=== PATIENT | female | born 1985 | race Caucasian/White ===

== ENCOUNTER → 2017-02-26 | Outpatient (CLI) | payer OTHER | END | disposition home or self-care (01) | LOC: C.PAPS 09:29 | PROVIDERS: ATTEND Obstetrics & Gynecology | DX: Z12.4 Encounter for screening for malignant neoplasm of cervix (principal) ==

== ENCOUNTER 2024-02-17 07:46 | Inpatient (IN) ==
[2024-02-17] MEDS ORDERED: LIDOCAINE 1% LOCAL 20 ML VIAL INFIL PRN (08:58)
[2024-02-17] MEDS ORDERED: OXYTOCIN 30 UNITS/NSS 30 UNITS/500 ML BAG IV PRN (08:58)
--- NOTE | 2024-02-17 10:04 | History & Physical Report ---
Date of Service February 17, 2024 Assessment & Plan (1) Encounter for supervision of elderly primigravida: Plan: Admit to L&D. EFM/toco. Labs. Hourly glucose when in active labor, and on admission. Penicillin for GBS prophylaxis. OK for epidural when she desires. Admission and Anticipated Discharge Date Admission Date: February 17, 2024 History of Present Illness Chief Complaint: IOL Primary Care Provider: NO PCP 38yo @ 42 08/07, here for postdates IOL. and Delivery Plans AMA *Weekly NST's @ 36 weeks Factor V Leiden HETEROZYGOUS, no personal h/o clot but patient's mom had DVT = no antepartum tx indicated, but prophy dose anticoag 6wk ppx per ACOG ASA 81mg daily @ 12wk (nullip / AMA) GDM w/28wk glucola *Begin monthly Growth US's GBS Positive *Treat in Labor IOL post dates scheduled for 02/[address] Graf Allergies Allergy/AdvReac Type Severity Reaction Status Date / Time No Known Allergies Allergy Verified 02/16/24 13:05 Home Medications Medication Instructions Recorded Confirmed Type multivitamin 1 tab PO DAILY 06/29/23 02/16/24 History vit no.95-ferrous 1 tab PO DAILY 06/29/23 02/16/24 History fumarate 28 mg-folic acid 800 mcg tablet () folic acid PO 06/30/23 02/16/24 History acetone (urine) test (Ketone Urine #50 ea 12/08/23 02/16/24 Rx Test strips) blood sugar diagnostic (OneTouch #150 ea 12/08/23 02/16/24 Rx Verio test strips) blood-glucose meter (OneTouch #1 ea 12/08/23 02/16/24 Rx Verio Reflect Meter) lancets 33 gauge (OneTouch Delica #150 ea 12/08/23 02/16/24 Rx Plus Lancet) breast pump #1 ea 01/12/24 02/16/24 Rx Patient History Medical History (Updated 01/26/24 @ 08:10 by Torrie Cherry) Chicken pox Factor V deficiency Ulcer Surgical History S/P wisdom tooth extraction Hx of knee surgery Hx of foot surgery Family History Mother Deep vein thrombosis Other Hypertension Thyroid disease Denies family history of Ovarian cancer Breast cancer Colorectal cancer Uterine cancer Social History (Updated 06/30/23 @ 08:59 by Sarahi Garner, ANITHA) Smoking Status: Never smoker Second Hand Exposure: No; Do You Dip or Chew Tobacco: No; Tobacco Cessation Education Requested by Patient: No Hx Alcohol Use: No Hx Substance Use: No Preferred Language: Palauan Communication Ability: Effective Fly Winder Required: No Beliefs That Will Affect Care: None marital status: marital status details: Nahun Carlton (34) [phone] Current Living Situation: Spouse Current Living Situation Comment: Lives with spouse, 2 dogs current occupational status: employed current occupation: [employer] Other Information That Helps Us Care for You: No Feels Safe at Home: Yes Safety Concerns: Feels Safe At This Time Review of Systems All systems reviewed & are unremarkable except as noted in HPI & below Physical Exam Physical Exam: FHT Cat 1 [place] rare SVE /-1 Constitutional: WD/WN, vitals as above Respiratory: normal respiratory effort, lungs clear to auscultation no respiratory distress Cardiovascular: Rate/Rhythm: regular rate and regular rhythm Gastrointestinal (Abdomen): Inspection/Auscultation: abdomen normal to inspection Percussion/Palpation: abdomen soft; abdomen nontender Gravid. No s/s chorio or abruption. Skin: no rashes, warm and dry Psychiatric: A+Ox3, euthymic affect Results & Data Vital Signs (Past 12 Hours) Vital Signs Temp Pulse Resp BP 02/17/24 09:56 94 H 130/80 02/17/24 08:13 36.8 C 98 H 18 120/75 02/17/24 08:04 98 H 120/75 Coding Level of Care Code None Diagnoses Encounter for supervision of elderly primigravida O09.519
[2024-02-17] MEDS: SODIUM CHLORIDE 0.9% 1,000 ML IV SCH (10:06)
[2024-02-17] MEDS: PENICILLIN GK 6 MU in SODIUM CHLORIDE 0.9% 250 ML IV STA (10:07)
[2024-02-17] MEDS: OXYTOCIN 30 UNITS/NSS 30 UNITS/500 ML BAG IV PRN (10:12)
[2024-02-17 10:13] LABS: Hematocrit (blood only) 38.4 % (37.0-47.0); Hemoglobin 13.7 g/dl (12.0-16.0); Mean Corpuscular Hemoglobin 33.9 pg (25.0-34.0); Mean Corpuscular Hgb Conc 35.7 g/dL (32.0-36.0); Mean Platelet Volume 10.7 fL (9.4-12.4); Platelet Count 184 K/uL (130-400); RDW Coefficient of Variation 13.5 % (11.5-14.5); RDW Standard Deviation 46.6 fL (36.4-46.3); Red Blood Count 4.04 M/uL (4.20-5.40); White Blood Count 11.02 K/ul (4.8-10.8)
[2024-02-17] MEDS: PENICILLIN GK 3 MU in DEXTROSE 5% 100 ML IV PRN (14:02)
--- NOTE | 2024-02-17 15:17 | Anesthesiology Consultation ---
Date of Service February 17, 2024 Assessment & Plan (1) Encounter for pre-operative examination: Chart Review Chart Review: Acceptable Risk for Labor Epidural History Height/Weight Height: 5 ft 6 in Weight: 97.522 kg Allergies Allergy/AdvReac Type Severity Reaction Status Date / Time No Known Allergies Allergy Verified 02/17/24 10:39 Medications Home Medications Medication Instructions Recorded Confirmed Last Taken vit no.95-ferrous 1 tab PO DAILY 06/29/23 02/17/24 06/29/23 fumarate 28 mg-folic acid 800 mcg tablet () acetone (urine) test (Ketone Urine #50 ea 12/08/23 02/16/24 Unknown Test strips) blood sugar diagnostic (OneTouch #150 ea 12/08/23 02/16/24 Unknown Verio test strips) blood-glucose meter (OneTouch #1 ea 12/08/23 02/16/24 Unknown Verio Reflect Meter) lancets 33 gauge (OneTouch Delica #150 ea 12/08/23 02/16/24 Unknown Plus Lancet) breast pump #1 ea 01/12/24 02/16/24 Unknown Active Medications Generic Name Dose Route Start Last Admin Trade Name Freq PRN Reason Stop Dose Admin Oxytocin 30 units in 500 mls @ 17 mls/hr 02/17/24 08:58 02/17/24 14:31 Pitocin 30 Units/Nss IV 02/19/24 08:57 1.02 units/hr .Q24H PRN 17 mls/hr Labor Induction/Augmentation Titration Protocol 1.02 UNITS/HR Penicillin G Potassium 3 mu/ 106 mls @ 100 mls/hr 02/17/24 11:58 02/17/24 14:02 Dextrose IV 02/27/24 11:57 100 mls/hr Q4H PRN Administration GBS(+) Until Delivery Sodium Chloride 1,000 mls @ 50 mls/hr 02/17/24 10:15 02/17/24 10:06 Nss IV 02/18/24 10:14 50 mls/hr .Q20H LEANN Administration Past Medical History Medical History (Updated 02/17/24 @ 15:16 by Gallo Alvarez MD) GDM (gestational diabetes mellitus) Chicken pox Factor V deficiency Ulcer Past Family History Family History Mother Deep vein thrombosis Other Hypertension Thyroid disease Denies family history of Ovarian cancer Breast cancer Colorectal cancer Uterine cancer Past Surgical History Surgical History S/P wisdom tooth extraction Hx of knee surgery Hx of foot surgery Social History Smoking Status: Never smoker Do You Dip or Chew Tobacco: No Hx Alcohol Use: No Hx Substance Use: No Physical Exam Vital Signs Last Vital Signs Temp 36.9 C 02/17/24 11:46 Pulse 93 H 02/17/24 14:11 Resp 18 02/17/24 11:46 BP 120/74 02/17/24 14:11 Testing Laboratory Results 02/17/24 09:42 02/17/24 13:54 POC Glucose 111 H
[2024-02-17] MEDS: fentaNYL citrate PF 100 MCG/2 ML VIAL ONE (16:00)
[2024-02-17] MEDS: fentANYL 2 MCG/ML BUPIVacaine 0.125%-NSS 100ML BAG ONE (16:20)
[2024-02-17] MEDS: ePHEDrine sulfate 50 MG/ML AMP ONE (16:20)
[2024-02-17] MEDS: BUPIVACAINE 0.25% PF 30 ML VIAL ONE (16:39)
[2024-02-17] MEDS: LIDOCAINE 2%/EPINEPHRINE 1:200,000 20 ML PF ONE (16:40)
[2024-02-17] MEDS: SODIUM CHLORIDE 0.9% PF INJ 10 ML VIAL ONE (16:41)
--- NOTE | 2024-02-17 21:16 | Anesthesia Procedure Note ---
Date of Service February 17, 2024 Anesthesia Epidural Re-Dose Vital Signs Temp Pulse Resp BP Pulse Ox 37.0 C 125 H 18 110/56 L 99 02/17/24 19:01 02/17/24 21:13 02/17/24 20:00 02/17/24 21:13 02/17/24 21:08 Notes Pain Intensity: 6 Dilatation (cm): 10.0 Effacement (%): 100 Called by nursing to evaluate epidural as the patient is having increased pain. The epidural was re-dosed with the following medications (all medications via epidural route) after negative aspiration of the epidural catheter for CSF/HEME 1.2% lidocaine and 0.2% ropivacaine 6ml plus another 3ml After Epidural Re-Dose Mental Status: alert / awake / arousable Pain: improving with treatment Airway Patency, RR, SpO2: stable & adequate BP & HR: stable & adequate
[2024-02-18] MEDS: fentANYL 2 MCG/ML BUPIVacaine 0.125%-NSS 100ML BAG ONE (00:07)
[2024-02-18] MEDS ORDERED: fentaNYL citrate PF 100 MCG/2 ML VIAL EPI PRN (00:51)
[2024-02-18] MEDS ORDERED: SODIUM CHLORIDE 0.9% PF INJ 10 ML VIAL EPI STA (00:51)
[2024-02-18] MEDS ORDERED: ePHEDrine sulfate 50 MG/ML AMP IV PRN (00:51)
[2024-02-18] MEDS ORDERED: BUPIVACAINE 0.25% PF 30 ML VIAL EPI STA (00:51)
[2024-02-18] MEDS ORDERED: ROPIVACAINE 0.5% PF 5 MG/ML 20 ML VIAL EPI PRN (00:51)
[2024-02-18] MEDS ORDERED: fentaNYL citrate PF 100 MCG/2 ML VIAL EPI STA (00:51)
[2024-02-18] MEDS ORDERED: NALOXONE HCL 0.4 MG/1 ML VIAL/CARP IV PRN (00:51)
[2024-02-18] MEDS ORDERED: SODIUM CHLORIDE 0.9% PF INJ 10 ML VIAL EPI PRN (00:51)
[2024-02-18] MEDS ORDERED: ONDANSETRON INJ 2 MG/ML 2 ML VIAL IV PRN (00:51)
[2024-02-18] MEDS ORDERED: LIDOCAINE 2% MPF LOCAL 5 ML VIAL EPI PRN (00:51)
[2024-02-18] MEDS ORDERED: NALOXONE HCL 1 MG in SODIUM CHLORIDE 0.9% 1,000 ML IV PRN (00:51)
[2024-02-18] MEDS ORDERED: LIDOCAINE 2%/EPINEPHRINE 1:200,000 20 ML PF EPI STA (00:51)
[2024-02-18] MEDS ORDERED: fentANYL 2 MCG/ML BUPIVacaine 0.125%-NSS 100ML BAG EPI PRN (00:51)
[2024-02-18] MEDS ORDERED: BUPIVACAINE 0.25% PF 30 ML VIAL EPI PRN (00:51)
--- NOTE | 2024-02-18 01:04 | Labor Progress Brief Note ---
Date of Service February 18, 2024 Subjective Actively pushing for the past 2h. After epidural, underwent AROM for clear fluid. FHT Cat 1 [place] Q 2-3 SVE 10/100/+2 to +3 with pushes. Assessment & Plan Admission and Anticipated Discharge Date Admission Date: February 17, 2024 Results & Data Vital Signs (Past 12 Hours) Vital Signs Temp Pulse Resp BP Pulse Ox 02/18/24 01:02 116 H 93 02/18/24 00:58 90 95 02/18/24 00:55 127 H 94 02/18/24 00:53 89 96 02/18/24 00:48 106 H 95 02/18/24 00:46 127 H 94 02/18/24 00:43 87 95 02/18/24 00:41 101 H 116/63 02/18/24 00:40 134 H 92 02/18/24 00:38 85 94 02/18/24 00:34 103 H 94 02/18/24 00:33 93 H 96 02/18/24 00:30 18 02/18/24 00:30 18 02/18/24 00:28 119 H 91 02/18/24 00:26 96 H 111/64 02/18/24 00:23 93 H 97 02/18/24 00:22 124 H 93 02/18/24 00:18 86 97 02/18/24 00:13 129 H 88 L 02/18/24 00:11 115 H 116/63 02/18/24 00:08 94 H 98 02/18/24 00:07 103 H 74 L 02/18/24 00:03 89 96 02/18/24 00:01 121 H 93 02/18/24 00:00 18 02/18/24 00:00 18 02/17/24 23:58 108 H 69 L 02/17/24 23:56 93 H 109/68 02/17/24 23:55 94 H 94 02/17/24 23:53 104 H 97 02/17/24 23:48 91 H 97 02/17/24 23:43 92 H 95 02/17/24 23:42 93 H 113/66 02/17/24 23:40 136 H 86 L 02/17/24 23:38 99 H 99 02/17/24 23:33 102 H 99 02/17/24 23:32 96 H 90 02/17/24 23:30 20 02/17/24 23:30 20 02/17/24 23:28 97 H 100 02/17/24 23:26 102 H 98/60 L 02/17/24 23:25 107 H 78 L 02/17/24 23:23 97 H 100 02/17/24 23:19 110 H 84 L 02/17/24 23:18 98 H 100 02/17/24 23:13 108 H 93 02/17/24 23:11 96 H 97/62 L 02/17/24 23:08 97 02/17/24 23:08 96 H 02/17/24 23:08 105 H 94 02/17/24 23:03 103 H 85 L 02/17/24 23:00 101 H 94 02/17/24 22:58 91 H 100 02/17/24 22:56 96 H 88/56 L 02/17/24 22:53 96 H 93 02/17/24 22:48 85 100 02/17/24 22:43 84 100 02/17/24 22:41 87 90/53 L 02/17/24 22:38 93 H 100 02/17/24 22:33 85 100 02/17/24 22:28 89 100 02/17/24 22:23 92 H 97 02/17/24 22:19 92 H 89 L 02/17/24 22:18 94 H 100 02/17/24 22:13 91 H 96 02/17/24 22:12 105 H 125/63 02/17/24 22:11 100 H 92 02/17/24 22:08 95 H 97 02/17/24 22:06 110 H 94 02/17/24 22:03 112 H 99 02/17/24 22:00 18 02/17/24 22:00 18 02/17/24 21:58 99 H 103/61 100 02/17/24 21:53 109 H 100 02/17/24 21:48 97 H 100 02/17/24 21:43 102 H 99 02/17/24 21:41 96 H 103/65 02/17/24 21:38 97 02/17/24 21:38 102 H 02/17/24 21:38 102 H 109/68 02/17/24 21:33 103 H 99 02/17/24 21:30 18 02/17/24 21:30 36.5 C 18 02/17/24 21:28 99 H 99 02/17/24 21:25 105 H 97/53 L 02/17/24 21:23 113 H 97 02/17/24 21:18 116 H 100 02/17/24 21:15 109 H 103/59 L 02/17/24 21:13 99 02/17/24 21:13 118 H 02/17/24 21:13 125 H 110/56 L 02/17/24 21:11 111 H 118/67 02/17/24 21:09 104 H 122/78 02/17/24 21:08 111 H 99 02/17/24 21:06 103 H 120/76 02/17/24 21:05 103 H 119/76 02/17/24 21:00 18 02/17/24 21:00 18 02/17/24 20:49 99 H 83 L 02/17/24 20:45 97 H 100 02/17/24 20:43 113 H 94 02/17/24 20:40 89 100 02/17/24 20:38 91 H 91 02/17/24 20:35 100 H 85 L 02/17/24 20:31 91 H 91 02/17/24 20:30 90 18 99 02/17/24 20:25 95 H 77 L 02/17/24 20:20 93 H 100 02/17/24 20:15 109 H 98 02/17/24 20:10 92 H 97 02/17/24 20:05 94 H 99 02/17/24 20:03 87 94 02/17/24 20:00 102 H 18 97 02/17/24 19:55 89 99 02/17/24 19:50 102 H 97 02/17/24 19:45 93 H 98 02/17/24 19:40 86 97 02/17/24 19:35 92 H 99 02/17/24 19:30 88 18 96 02/17/24 19:25 91 H 97 02/17/24 19:20 88 98 02/17/24 19:15 98 H 98 02/17/24 19:12 94 H 93 02/17/24 19:10 97 H 97 02/17/24 19:05 101 H 98 02/17/24 19:01 18 02/17/24 19:01 37.0 C 18 02/17/24 19:00 103 H 98 24 18:55 99 H 98 02/17/24 18:50 101 H 98 24 18:48 99 H 94 02/17/24 18:45 101 H 97 24 18:40 103 H 98 24 18:35 100 H 98 24 18:30 100 H 98 24 18:25 100 H 99 02/17/24 18:20 106 H 97 24 18:17 96 H 124/76 02/17/24 18:16 112 H 92 02/17/24 18:15 112 H 98 02/17/24 18:10 98 H 99 02/17/24 18:05 94 H 99 02/17/24 18:00 109 H 99 02/17/24 17:55 99 02/17/24 17:55 89 02/17/24 17:55 98 H 93 02/17/24 17:50 90 98 02/17/24 17:45 91 H 98 02/17/24 17:40 91 H 98 02/17/24 17:37 94 H 91 02/17/24 17:35 103 H 99 02/17/24 17:30 104 H 93 02/17/24 17:25 97 H 98 02/17/24 17:20 98 02/17/24 17:20 97 H 02/17/24 17:20 93 H 93 02/17/24 17:16 97 H 120/78 02/17/24 17:15 97 H 97 02/17/24 17:10 96 02/17/24 17:10 101 H 24 17:10 99 H 93 24 17:05 102 H 98 24 17:00 109 H 115/68 99 24 16:55 98 H 99 24 16:50 93 H 98 24 16:45 97 24 16:45 104 H 1724 16:45 108 H 123/66 24 16:44 99 H 94 1724 16:40 96 H 123/76 97 1724 16:38 105 H 92 24 16:35 98 H 97 02/17/24 16:33 99 H 116/76 02/17/24 16:31 95 H 114/73 02/17/24 16:30 96 H 96 02/17/24 16:29 93 H 114/74 02/17/24 16:27 95 H 113/64 93 02/17/24 16:25 103 H 17 100 02/17/24 16:24 90 100/58 L 02/17/24 16:22 86 83/48 L 02/17/24 16:21 93 H 84/45 L 02/17/24 16:20 90 98 02/17/24 16:19 95 H 82/50 L 02/17/24 16:17 104 H 103/61 02/17/24 16:15 99 02/17/24 16:15 111 H 02/17/24 16:15 100 H 118/79 02/17/24 16:13 125 H 131/73 02/17/24 16:11 102 H 128/85 02/17/24 16:10 95 H 98 02/17/24 16:05 106 H 77 L 02/17/24 16:00 102 H 98 02/17/24 15:56 93 H 128/85 02/17/24 15:55 106 H 97 02/17/24 15:50 90 97 02/17/24 15:45 98 H 97 02/17/24 15:40 94 H 98 02/17/24 15:38 88 121/88 02/17/24 15:35 95 H 98 02/17/24 14:11 93 H 120/74 02/17/24 13:17 100 H 115/75 Coding Level of Care Code None
--- NOTE | 2024-02-18 02:00 | Delivery Summary ---
Vaginal Delivery Summary Date of Service February 18, 2024 Vaginal Delivery Summary and 2nd Degree LAC Vaginal Delivery Summary: Pre-delivery diagnoses: 38yo @ 41 0/7, postdates IOL, AMA, GDMA1, GBS+, heterozygous Factor V Leiden Post-delivery diagnoses: same Procedure: spontaneous vaginal delivery Surgeon: Nancy Graf DO Complications: none Findings: Viable male . Apgars: 8/9 . Weight pending, please see nursery records Estimated QBL: 324 cc Description of delivery: The patient progressed to complete with epidural anesthesia. She then began to push. She spontaneously vaginally delivered a viable from the cephalic presentation. The head delivered in YARI position. The anterior shoulder delivered, followed by the posterior shoulder, followed by the body. The baby was placed on mother's abdomen and a spontaneous cry was heard. Delayed cord clamping was employed, and the cord was doubly clamped and cut. Cord blood was obtained. The placenta was delivered spontaneously intact with a 3-vessel cord. The uterus and vagina were swept of clots and debris. IV pitocin was given. The uterus became firm. The cervix, vagina, and perineum were inspected and 2nd degree laceration noted and repaired with 3-0 Vicryl. Excellent hemostasis was observed. The mother and baby are recovering in stable and good condition in the room. Sponge, needle and instrument counts were correct x 2. Will check H/H in the morning and start prophylactic Lovenox dosing x 6w if stable. Nancy Graf DO [facility] V[facility]inal Delivery Charge Vaginal Delivery Codes: 01094 global code for the antepartum, delivery, and post- Delivery Type Details: and 2nd Degree LAC
[2024-02-18] MEDS ORDERED: oxyCODONE/ACETAMINOPHEN 5mg/325mg TAB PO PRN (02:10)
[2024-02-18] MEDS ORDERED: HYDROCORTISONE ACETATE 25 MG SUPP PR PRN (02:10)
[2024-02-18] MEDS ORDERED: OXYTOCIN 30 UNITS/NSS 30 UNITS/500 ML BAG IV PRN (02:10)
[2024-02-18] MEDS ORDERED: bisacodyL 10 MG SUPP PR PRN (02:10)
[2024-02-18] MEDS: OXYTOCIN 30 UNITS/500ML NSS IV ONE (02:20)
[2024-02-18] MEDS: ACETAMINOPHEN 325 MG TAB PO PRN (04:02)
[2024-02-18] MEDS: DIPHTHER/TETAN/PERTUS Vaccine (Tdap, Adol/Adult) 0.5mL IM ONE (04:03)
[2024-02-18] MEDS: BENZOCAINE 20% SPRY 85 APPLN/85 GM CAN EXT PRN (04:07)
[2024-02-18 06:56] LABS: Hematocrit (blood only) 33.9 % (37.0-47.0); Hemoglobin 11.7 g/dl (12.0-16.0)
[2024-02-18] MEDS: PRENATAL VITAMIN 1 TAB PO SCH (09:05)
[2024-02-18] MEDS: ENOXAPARIN INJ 40 MG/0.4 ML SYR SQ SCH (09:05)
[2024-02-18] MEDS: DOCUSATE SODIUM 100 MG CAP PO SCH (09:05)
--- NOTE | 2024-02-18 10:54 | Anesthesia Procedure Note ---
Date of Service February 18, 2024 Anesthesia Post Epidural Note Vital Signs Vital Signs: Temp Pulse Resp BP Pulse Ox O2 Del Method 36.7 C 96 H 18 117/66 96 Room Air 02/18/24 04:23 02/18/24 04:23 02/18/24 04:23 02/18/24 04:23 02/18/24 04:23 02/18/24 04:23 Notes Mental Status: alert / awake / arousable Nausea / Vomiting: adequately controlled Pain: adequately controlled Airway Patency, RR, SpO2: stable & adequate BP & HR: stable & adequate Hydration State: stable & adequate Neuraxial Anesthesia: was administered and sensory block is resolving Anesthetic Complications: no major complications apparent and Pt Satisfied with anesthetic care Epidural: Removed without complications and With tip intact
[2024-02-18] MEDS: IBUPROFEN 600 MG TAB PO PRN (12:31)
[2024-02-18 20:36] VITALS: RESP 18
--- NOTE | 2024-02-19 06:55 | Obstetrical Progress Note ---
Date of Service February 19, 2024 Assessment & Plan (1) Vaginal delivery: Plan: Both mom and baby doing well. Discharge today as per protocol. Mom ready for discharge if baby fine from pediatric side. (2) Factor V Leiden mutation affecting : Plan: - Continue Lovenox prophy dose 6wk ppx per ACOG Admission and Anticipated Discharge Date Admission Date: February 17, 2024 Supervising Physician Co-Signing Physician Notes Resident Physician Supervision Note: I interviewed and examined the patient. Discussed with Dr. Montgomery and agree with findings and plan as documented in the note. Any exceptions or clarifications are listed here: [None] Documented By: Chiquis Pizarro MD, FACOG Subjective 1st PPDfollowing with 2nd degree tear in 38 years P1 at term. No active complains Both mom and baby doing well. Pain: Mild, intermittent Lochia: Moderate Diet: Regular Ob diet Gas: Passed. Peeing: Normal, no bladder distension Ambulation: Normally Review of Systems Review of Systems: No SOB, chest pain, leg pain No dizziness, headache, palpitation No Blurring of vision , fever Physical Exam Physical Exam: General: Alert and oriented. No acute distress. CVS: S1 S2+ No murmurs, regular rhythm. Respiratory: CTA bilaterally. No rhonchi, wheezes, or crackles. No increased work of breathing. Abdomen: Bowel sound +. Soft, nontender Uterus: Fundus firm and palpable few cm below the umbilicus. Lower extremities: No LE edema. No deep calf pain. Results & Data Vital Signs (Past 12 Hours) Vital Signs Temp Pulse Pulse Resp BP Pulse Ox O2 Del Method 02/18/24 23:50 36.9 C 90 18 119/72 96 Room Air 02/18/24 19:20 36.5 C 93 H 18 118/74 97 Room Air Resident Activity Tracking Resident Involvement: Resident Care Provided Care Provided: OB Delivery
[2024-02-19 09:49] VITALS: O2SAT 97
[2024-02-19 14:40] VITALS: BP 109/66; PULSE 90; TEMP 98.2
[2024-02-19] MEDS ORDERED: bisacodyL 5 MG TABEC PO SCH (20:00)
== END 2024-02-19 16:30 | disposition home or self-care (01) | DRG 806 ==
LOC: 4S1 07:46 → 4E2 02-18 04:06